=== PATIENT | male | born 1955 | race Caucasian/White ===

== ENCOUNTER 2019-02-23 16:32 | Inpatient (IN) | payer OTHER ==
[~2019-02-23] VITALS: Ht 182.9 cm; Wt 70.6 kg
[2019-02-24 12:36] VITALS: Ht 182.9 cm; Wt 70.6 kg
[2019-05-07 08:45] VITALS: BP 62/33
[2019-05-07 09:15] VITALS: PULSE 0; RESP 0
== END 2019-05-07 09:03 | disposition expired | DRG 4 ==
LOC: ICU 02-24 11:05 → 6WM 03-17 16:25 → ICU 04-08 12:28 → TEL 04-14 23:37 → ICU 04-20 20:12 → TEL 04-21 01:58 → ICU 05-05 17:46
PROVIDERS: ADMIT Internal Medicine; ATTEND Hospitalist
PROC: 5A1955Z Respiratory Ventilation, Greater than 96 Consecutive Hours (ICD-10-PCS; 2019-02-24)
PROC: 5A1D70Z Performance of Urinary Filtration, Intermittent, Less than 6 Hours Per Day (ICD-10-PCS; 2019-02-26)
PROC: 0DH63UZ Insertion of Feeding Device into Stomach, Percutaneous Approach (ICD-10-PCS; 2019-02-27)
PROC: 30233N1 Transfusion of Nonautologous Red Blood Cells into Peripheral Vein, Percutaneous Approach (ICD-10-PCS; 2019-03-04)
PROC: 30233R1 Transfusion of Nonautologous Platelets into Peripheral Vein, Percutaneous Approach (ICD-10-PCS; 2019-03-04)
PROC: 0BH18EZ Insertion of Endotracheal Airway into Trachea, Via Natural or Artificial Opening Endoscopic (ICD-10-PCS; 2019-03-11)
PROC: 0W9B3ZZ Drainage of Left Pleural Cavity, Percutaneous Approach (ICD-10-PCS; 2019-03-11)
PROC: 0B110F4 Bypass Trachea to Cutaneous with Tracheostomy Device, Open Approach (ICD-10-PCS; 2019-03-16)
PROC: 02HV33Z Insertion of Infusion Device into Superior Vena Cava, Percutaneous Approach (ICD-10-PCS; principal; 2019-03-21)
PROC: 0JH63XZ Insertion of Tunneled Vascular Access Device into Chest Subcutaneous Tissue and Fascia, Percutaneous Approach (ICD-10-PCS; 2019-03-21)
PROC: 0WBL0ZZ Excision of Lower Back, Open Approach (ICD-10-PCS; 2019-03-24)
PROC: 02PY33Z Removal of Infusion Device from Great Vessel, Percutaneous Approach (ICD-10-PCS; 2019-04-04)
PROC: 02HV33Z Insertion of Infusion Device into Superior Vena Cava, Percutaneous Approach (ICD-10-PCS; 2019-04-04)
PROC: 0W9G3ZZ Drainage of Peritoneal Cavity, Percutaneous Approach (ICD-10-PCS; 2019-04-24)
PROC: 0W9G30Z Drainage of Peritoneal Cavity with Drainage Device, Percutaneous Approach (ICD-10-PCS; 2019-05-01)
DX: A41.9 Sepsis, unspecified organism (principal); J96.01 Acute respiratory failure with hypoxia; J18.9 Pneumonia, unspecified organism; G92 Toxic encephalopathy; N17.0 Acute kidney failure with tubular necrosis; R65.21 Severe sepsis with septic shock; N18.6 End stage renal disease; G72.81 Critical illness myopathy; D47.02 Systemic mastocytosis; K76.6 Portal hypertension; E87.1 Hypo-osmolality and hyponatremia; J90 Pleural effusion, not elsewhere classified; K56.7 Ileus, unspecified; D61.818 Other pancytopenia; N39.0 Urinary tract infection, site not specified; R18.8 Other ascites; K62.5 Hemorrhage of anus and rectum; K74.60 Unspecified cirrhosis of liver; K75.81 Nonalcoholic steatohepatitis (NASH); E03.9 Hypothyroidism, unspecified; D69.6 Thrombocytopenia, unspecified; R13.10 Dysphagia, unspecified; B95.2 Enterococcus as the cause of diseases classified elsewhere; L89.159 Pressure ulcer of sacral region, unspecified stage; K74.69 Other cirrhosis of liver; D64.9 Anemia, unspecified; Z66 Do not resuscitate; J44.9 Chronic obstructive pulmonary disease, unspecified; L89.150 Pressure ulcer of sacral region, unstageable; B96.1 Klebsiella pneumoniae [K. pneumoniae] as the cause of diseases classified elsewhere; E87.70 Fluid overload, unspecified; R73.9 Hyperglycemia, unspecified; I48.91 Unspecified atrial fibrillation
CPT/HCPCS: 31500; 36430; 36558; 36600; 71045; 74018; 74176; 75989; 76705; 76942; 77012; 80048; 80053; 80076; 80202; 81001; 81003; 82140; 82436; 82550; 82803; 82962; 83036; 83605; 83735; 84100; 84132; 84133; 84134; 84155; 84300; 84439; 84443; 84478; 84481; 85014; 85018; 85025; 85049; 85610; 85670; 85730; 86644; 86703; 86704; 86709; 86803; 86850; 86900; 86901; 86920; 86945; 87070; 87075; 87081; 87086; 87102; 87116; 87340; 88104; 88305; 89220; 90935; 93005; 94002; 94003; 94660; 94664; 94770; 94799; 97110; 97163; 97530; A4310; C1729; C1750; C1751; C1752; C9113; J0153; J0278; J0690; J0692; J1170; J1450; J1580; J1644; J1815; J1940; J2150; J2185; J2270; J2354; J2370; J2405; J2543; J2765; J2920; J2997; J3010; J3250; J3370; J3475; J3480; J7030; J7040; J7042; J7050; J7070; P9016; P9035; P9045; P9047; Q5105; Q9967